=== PATIENT | male | born 1980 | race Two or more races ===

== ENCOUNTER 2021-04-05 21:44 | Emergency (ER) | payer OTHER ==
[~2021-04-05] VITALS: Ht 180.3 cm; Wt 81.6 kg
[2021-04-06] MEDS ORDERED: ZOFRAN8 MG PO (03:52)
[2021-04-06] MEDS ORDERED: PEPCID40 MG PO (03:52)
== END 2021-04-06 04:01 ==
LOC: ER 21:44
DX: B34.8 Other viral infections of unspecified site (principal); K29.70 Gastritis, unspecified, without bleeding

== ENCOUNTER 2021-04-11 03:26 | Emergency (ER) | payer OTHER ==
[~2021-04-11] VITALS: Ht 180.3 cm; Wt 88.9 kg
[~2021-04-11 03:26] MED LIST: PEPCID40 MG PO; ZOFRAN8 MG PO
[2021-04-11] MEDS ORDERED: VISTARIL50 MG PO (06:47)
[2021-04-11] MEDS ORDERED: KETO10TA2 PO (06:47)
== END 2021-04-11 07:14 ==
LOC: ER 03:26
DX: F41.9 Anxiety disorder, unspecified (principal); M79.672 Pain in left foot; Z88.0 Allergy status to penicillin

== ENCOUNTER → 2021-08-05 | Emergency (ER) | payer OTHER ==
[~2021-08-05] VITALS: Ht 182.9 cm; Wt 88.0 kg
[~2021-08-05] MED LIST changes: +AZITHROMYCIN500 MG PO; +BUSPIRONE HCL10 MG PO; +FLUOXETINE HCL60 MG PO; +KETO10TA2 PO; +MORGIDOX100 MG PO; +NAPROXEN500 MG PO; +NICOTINE PATCH1 EAC2 TD; +PERPHENAZINE4 MG PO; +QUETIAPINE FUM400 M1 PO; +SERTRALINE20 MG/1 ML PO; +VISTARIL50 MG PO
== END | disposition home or self-care (01) ==
LOC: ER 00:14
DX: B34.9 Viral infection, unspecified (principal); R42 Dizziness and giddiness; R07.89 Other chest pain; D72.828 Other elevated white blood cell count; Z20.822 Contact with and (suspected) exposure to COVID-19